=== PATIENT | male | born 2000 | race Caucasian/White ===

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

== ENCOUNTER 2022-06-14 21:38 | Emergency (ER) | payer MEDICAID ==
[~2022-06-14] VITALS: Ht 167.6 cm; Wt 59.0 kg
[2022-06-14 21:38] VITALS: BP 152/104
[~2022-06-14 21:38] MED LIST: FLUR2.5D3 LEFT EYE; IBUP-2213 PO
--- NOTE | 2022-06-14 21:38 | NUR ---
PT TAKEN TO BED 10. DR. MEDINA AT BEDSIDE
[2022-06-14] MEDS ORDERED: HYDROmorphone PFS 2 MG/ML SYR ONE (21:42)
--- NOTE | 2022-06-14 21:42 | NUR ---
[place] [facility] AT BEDSIDE
--- NOTE | 2022-06-14 21:42 | NUR ---
XRAY AT BEDSIDE
[2022-06-14] MEDS ORDERED: HYDROmorphone PFS 2 MG/ML SYR IVP ONE (21:45)
[2022-06-14] MEDS ORDERED: NACL 0.9% 1,000 ML IV ONE (21:45)
[2022-06-14] MEDS ORDERED: ONDANSETRON 4 MG/2 ML VIAL IVP ONE (21:45)
--- NOTE | 2022-06-14 21:48 | NUR ---
Patient resting in bed, A/Ox4, chest rise and fall symmetrical, patient stable. Addendum: 06/14/22 at 2148 by [email or web address] Patient resting in bed, A/Ox4, chest rise and fall symmetrical, patient stable, patient on monitor.
[2022-06-14 21:52] LABS: BASOPHILS % (AUTO) 0.4 % (0.0-2.0); EOSINOPHILS # (AUTO) 0.1 K/uL (0-0.4); EOSINOPHILS % (AUTO) 0.9 % (0.0-4.0); HEMATOCRIT 43.7 % (36-52); HEMOGLOBIN 14.6 g/dL (12.0-18.0); LYMPHOCYTES # (AUTO) 2.5 K/uL (2.0-11.5); LYMPHOCYTES % (AUTO) 38.9 % (20.5-51.1); MEAN CORPUSCULAR HEMOGLOBIN 28 pg (27-31); MEAN CORPUSCULAR HGB CONC 33 g/dL (33-37); MEAN CORPUSCULAR VOLUME 82.9 fL (80-94); MONOCYTES # (AUTO) 0.4 K/uL (0.8-1.0); MONOCYTES % (AUTO) 5.5 % (1.7-9.3); NEUTROPHILS # (AUTO) 3.6 K/uL (1.8-7.7); NEUTROPHILS % (AUTO) 54.3 % (42.2-75.2); PLATELET COUNT (AUTO) 225 K/uL (140-450); RED BLOOD CELL COUNT(AUTO) 5.26 MIL/uL (4.20-6.10); RED CELL DISTRIBUTION WIDTH 13.7 % (11.6-13.7); WHITE BLOOD COUNT (AUTO) 6.5 K/uL (4.5-11.0)
--- NOTE | 2022-06-14 21:54 | NUR ---
[facility] AT BEDSIDE
--- NOTE | 2022-06-14 21:55 | NUR ---
Patient to be transferred to [facility]. Is being transferred due to higher level of care. Receiving facility has accepting physician and available space. ER physician has signed transfer form. Patient or responsible alliance party has agreed to transfer and signed form. Patient belongings inventoried and will be sent with patient. Copy of nursing notes, lab reports, EKG, Physicians Orders and X-rays to be sent with patient. Report called to ER Nurse Nikki BOYD at receiving facility. [facility] ambulance service has arrived for transfer. [facility] ambulance staff given report, [facility] ambulance staff verbalized understanding of report, no further questions.
[2022-06-14 22:01] VITALS: BP 144/99
--- NOTE | 2022-06-14 22:11 | NUR ---
PT TAKEN BY [facility] TRANSPORT TO [facility]
[2022-06-14 22:13] LABS: ALBUMIN 4.8 g/dL (3.4-5.0); ANION GAP 19.5 (8-16); CARBON DIOXIDE 23.7 mmol/L (21-32); POTASSIUM 3.2 mmol/L (3.5-5.1); TOTAL BILIRUBIN 0.6 mg/dL (0.0-1.0)
--- NOTE | 2022-06-21 13:42 | NUR ---
Vincent moreno in EDM - 06/21/22 at 1342 by ESTEFANÍA LATE ENTRY -- CONFIRMED WITH NURSE NS INFUSION COMPLETED AT 2230 06/14/22
--- NOTE | 2022-06-21 13:42 | NUR ---
LATE ENTRY -- CONFIRMED WITH NURSE NS INFUSION COMPLETED AT 3190 06/14/22
== END 2022-06-14 22:11 | disposition short-term general hospital (02) ==
LOC: MED 21:38
DX: S71.102A Unspecified open wound, left thigh, initial encounter (principal); Z79.899 Other long term (current) drug therapy; W34.09XA Accidental discharge from other specified firearms, initial encounter; Y93.89 Activity, other specified; Y92.89 Other specified places as the place of occurrence of the external cause; Y99.8 Other external cause status
CPT/HCPCS: 36415; 73552; 80053; 85025; 86886; 86900; 86901; 96374; 96375; 99284; J1170; J2405; J7030; Q0092; 96361